=== PATIENT | male | born 1940 | race Caucasian/White ===

== ENCOUNTER → 2016-05-28 | Outpatient (CLI) | payer MEDICARE | END | disposition home or self-care (01) | LOC: GMAJ 10:18 | PROVIDERS: ATTEND Family Medicine | DX: Z12.5 Encounter for screening for malignant neoplasm of prostate (principal) ==

== ENCOUNTER → 2017-06-03 | Outpatient (CLI) | payer MEDICARE | LOC: GMAJ 11:22 | PROVIDERS: ATTEND Family Medicine | DX: Z12.5 Encounter for screening for malignant neoplasm of prostate (principal) ==

== ENCOUNTER 2019-06-20 12:04 | Inpatient (IN) | payer MEDICARE ==
--- NOTE | 2019-06-20 13:14 | RAD ---
EXAM DESCRIPTION: Abdomen Series CLINICAL HISTORY: 78 years Male, suprapubic and rlq pain 24 hr COMPARISON: None. FINDINGS: The cardiomediastinal silhouette is unremarkable. The lungs are hyperinflated, no airspace consolidation or pleural effusion. No free subdiaphragmatic gas or intra-abdominal air-fluid level. Large amount of colonic stool and gas, no dilated small bowel loops. Degenerative changes in the lumbar spine. No suspicious intra-abdominal calcification or mass. IMPRESSION: Large amount of colonic stool and gas without obstruction, pneumoperitoneum or other acute intra-abdominal abnormality. Pulmonary hyperinflation which may be related to deep inspiration or COPD. Electronically signed by: Andrey Luque MD 06/20/2019 1:12 PM CDT
--- NOTE | 2019-06-20 13:58 | CT ---
Study: CT abdomen and pelvis. Indication: rlq pain 24 hours Technique: CT of the abdomen and pelvis obtained without intravenous contrast. This exam was performed according to our departmental dose-optimization program, which includes automated exposure control, adjustment of the mA and/or kV according to patient size and/or use of iterative reconstruction technique. Comparison: None. Findings: Mild basilar atelectasis. Cardiomegaly. Liver, gallbladder, pancreas, spleen, adrenal glands, left kidney, bladder, prostate gland demonstrate normal unenhanced CT appearance. Small right renal cyst. No hydronephrosis or nephrolithiasis. Mild constipation. Appendix not visualized. Stomach and small bowel unremarkable. No free fluid. No free air. No pathologically enlarged lymphadenopathy. Atherosclerosis aorta. Degenerative changes of the spine noted. Impression: No hydronephrosis or nephrolithiasis. Mild constipation. Additional findings as above. Electronically signed by: Papi Aranda MD 06/20/2019 1:56 PM CDT
[2019-06-20] MEDS ORDERED: SOD CHL 3% *HYPERTONIC* 500ML 200 ML IVS ONE (14:10)
[2019-06-20] MEDS ORDERED: MAGNESIUM HYDROXIDE 30 ML UD PO ONE ×2 (14:13→18:00)
--- NOTE | 2019-06-20 14:20 | ED.PDOC ---
History of Present Illness - General Chief Complaint: Abdominal Pain Stated Complaint: abdominal pain Time Seen by Provider: 06/20/19 12:19 Source: patient Exam Limitations: no limitations - History of Present Illness Initial Comments: The patient is a 78-year-old male presenting to the emergency room primarily due to right lower quadrant pain. He showed up at his primary care doctor's office and was told to come to the emergency room for work-up. No fevers. Mild anorexia over the last 18 hours. Abdominal pain is vague. No real point tenderness. No rebound or peritoneal signs. No guarding. No obvious palpable hernia. No evidence of any trauma. No syncope or near syncope. He denies smoking or any excessive alcohol intake. He reports a normal diet. No recent obvious large weight loss. No history of any hyponatremia. He has however over the past weeks to months had increasing headaches along with dizziness and mild blurry vision along with tingling in his hands and some mild overall weakness. Timing/Duration: unsure Severity: moderate Improving Factors: nothing Worsening Factors: movement Associated Symptoms: headaches, loss of appetite, malaise, weakness Allergies/Adverse Reactions: Allergies Codeine Allergy (Unverified 05/11/12 13:40) Meperidine [From Demerol HCl] Allergy (Unverified 05/11/12 13:40) Morphine Allergy (Unverified 05/11/12 13:40) Home Medications: Ambulatory Orders Levocetirizine Dihydrochloride [Levocetirizine Dihydrochl] 5 mg PO DAILY 06/20/19 Meloxicam 7.5 mg PO BID 06/20/19 Tamsulosin [Flomax] 0.4 mg PO QD 06/20/19 Review of Systems - Review of Systems Constitutional: States: malaise, weakness EENTM: States: blurred vision Respiratory: States: no symptoms reported Cardiology: States: no symptoms reported Gastrointestinal/Abdominal: States: abdominal pain, constipation, nausea Genitourinary: States: no symptoms reported Musculoskeletal: States: no symptoms reported Skin: States: no symptoms reported Neurological: States: headache, tingling Endocrine: States: no symptoms reported All other Systems: No Change from Baseline Past Medical History (General) - Patient Medical History Hx Seizures: No Hx Stroke: No Hx Asthma: No Hx Cardiac Disorders: No Hx Pacemaker: No Hx Hypertension: No Hx Thyroid Disease: No Hx Diabetes: No Hx Gastroesophageal Reflux: No Surgical History: other - Social History Hx Tobacco Use: No Hx Chewing Tobacco Use: Yes Family Medical History - Family History Mother Family History: Unknown Physical Exam - Physical Exam General Appearance: Alert, Comfortable, No apparent distress Eye Exam: bilateral normal Ears, Nose, Throat: hearing grossly normal, other - Poor dentition Neck: full range of motion, supple Respiratory: lungs clear, normal breath sounds, no respiratory distress, no accessory muscle use Cardiovascular/Chest: normal peripheral pulses, regular rate, rhythm, no edema Peripheral Pulses: radial,right: 2+, radial,left: 2+, dorsalis pedis,right: 2+, dorsalis pedis,left: 2+ Gastrointestinal/Abdominal: soft, other - Mild right lower to suprapubic discomfort to palpation. No rebound or peritoneal signs. No obvious palpable mass. 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 After work-up including lab work and CT scan the most likely source for this is constipation and possibly a mild muscular strain. The patient will need to get cleaned out. Symptoms will need to be reevaluated after that. No obvious evidence of any appendicitis or other acute surgical pathology. The patient is however significantly hyponatremic and does seem to be symptomatic from that. Source of this is not entirely certain. He is going to be given 3% saline at 50 cc/h for 4 hours only. He will need to have a recheck after that. Additionally he may need to be checked again after getting cleaned out. The patient does understand that he may yet have to go on a fluid restriction longer-term as well as take a sodium supplement possibly. No focal neurological changes otherwise. Vital signs have remained stable. Admit for correction of symptomatic hyponatremia and constipation. - Results/Orders Results/Orders: Laboratory Last Values WBC 5.2 K/mm3 (4.8-10.8) 06/20/19 13:13 RBC 4.11 M/mm3 (4.70-6.10) L 06/20/19 13:13 Hgb 13.1 gm/dL (14.0-18.0) L 06/20/19 13:13 Hct 37.8 % (42.0-52.0) L 06/20/19 13:13 MCV 92.0 fl (80.0-94.0) 06/20/19 13:13 MCH 31.9 pg (27.0-31.0) H 06/20/19 13:13 MCHC 34.6 g/dL (33.0-37.0) 06/20/19 13:13 RDW 13.8 % (11.5-14.5) 06/20/19 13:13 Plt Count 198 K/mm3 (130-400) 06/20/19 13:13 MPV 6.8 fl (7.40-10.4) L 06/20/19 13:13 Absolute Neuts (auto) 3.30 K/uL (1.8-6.8) 06/20/19 13:13 Absolute Lymphs (auto) 1.40 K/uL (1.0-3.4) 06/20/19 13:13 Absolute Monos (auto) 0.40 K/uL (0.2-0.8) 06/20/19 13:13 Absolute Eos (auto) 0.00 K/uL (0.0-0.4) 06/20/19 13:13 Absolute Basos (auto) 0.00 K/uL (0.0-0.1) 06/20/19 13:13 Neutrophils % 63.8 % (42.0-78.0) 06/20/19 13:13 Lymphocytes % 26.8 % (20.0-50.0) 06/20/19 13:13 Monocytes % 8.2 % (2.0-9.0) 06/20/19 13:13 Eosinophils % 0.5 % (1.0-5.0) L 06/20/19 13:13 Basophils % 0.7 % (0.0-2.0) 06/20/19 13:13 Sodium 124 mmol/L (135-145) L 06/20/19 13:13 Potassium 4.0 mmol/L (3.6-5.0) 06/20/19 13:13 Chloride 91 mmol/L (101-111) L 06/20/19 13:13 Carbon Dioxide 26 mmol/L (21-31) 06/20/19 13:13 Anion Gap 11.0 (12-18) L 06/20/19 13:13 BUN 13 mg/dL (7-18) 06/20/19 13:13 Creatinine 0.70 mg/dL (0.6-1.3) 06/20/19 13:13 BUN/Creatinine Ratio 18.6 (10-20) 06/20/19 13:13 Random Glucose 98 mg/dL (70-105) 06/20/19 13:13 Serum Osmolality 249.7 mOsm/L (275-295) L* 06/20/19 13:13 Lactic Acid 1.0 mmol/L (0.5-2.2) 06/20/19 13:13 Calcium 9.3 mg/dL (8.4-10.2) 06/20/19 13:13 Total Bilirubin 1.2 mg/dL (0.2-1.0) H 06/20/19 13:13 AST 20 IU/L (10-42) 06/20/19 13:13 ALT 15 IU/L (10-60) 06/20/19 13:13 Alkaline Phosphatase 44 IU/L (42-121) 06/20/19 13:13 Serum Total Protein 7.2 gm/dL (6.4-8.2) 06/20/19 13:13 Albumin 3.9 g/dl (3.2-5.5) 06/20/19 13:13 Globulin 3.3 gm/dL (2.3-3.5) 06/20/19 13:13 Albumin/Globulin Ratio 1.2 (1.1-1.9) 06/20/19 13:13 Amylase 34 U/L (28-100) 06/20/19 13:13 Lipase 25 U/L (22-51) 06/20/19 13:13 Urine Color Yellow (Yellow) 06/20/19 12:12 Urine Appearance Clear (Clear) 06/20/19 12:12 Urine pH 5.5 (4.5-7.8) 06/20/19 12:12 Ur Specific [place] 1.010 (1.005-1.030) 06/20/19 12:12 Urine Protein Negative mg/dL 06/20/19 12:12 Urine Glucose (UA) Negative mg/dL (Negative) 06/20/19 12:12 Urine Ketones Negative mg/dL (NEGATIVE) 06/20/19 12:12 Urine Blood Trace-intact (Negative) H 06/20/19 12:12 Urine Nitrite Negative 06/20/19 12:12 Urine Bilirubin Negative (NEGATIVE) 06/20/19 12:12 Urine Urobilinogen 0.2 mg/dL (0.2-1.0) 06/20/19 12:12 Ur Leukocyte Esterase Negative (Negative) 06/20/19 12:12 Urine RBC 0 /hpf 06/20/19 12:12 Urine WBC 0-1 /hpf 06/20/19 12:12 Ur Epithelial Cells 0 /hpf 06/20/19 12:12 Urine Bacteria 0 06/20/19 12:12 Chest x-ray does show some hyperinflation. Abdominal x-ray shows large amount of stool. No obstruction. No perforation. CT scan of the abdomen and pelvis shows the constipation. No obvious renal pathology. No other obvious acute pathology. See report for details. Departure - Departure Clinical Impression: Hyponatremia with decreased serum osmolality Constipation Qualifiers: Constipation type: unspecified constipation type Qualified Code(s): K59.00 - Constipation, unspecified Disposition: Admit Patient Condition: Fair Departure Forms: ED Discharge - Pt. Copy, Patient Portal Self Enrollment Referrals: Yanick Johnson MD [Primary Care Provider] - 1-2 Weeks Home Medications: Ambulatory Orders Levocetirizine Dihydrochloride [Levocetirizine Dihydrochl] 5 mg PO DAILY 06/20/19 Meloxicam 7.5 mg PO BID 06/20/19 Tamsulosin [Flomax] 0.4 mg PO QD 06/20/19 Decision To Admit - Decistion To Admit Decision to Admit Reason: Medical Nature Decision to Admit Date: 06/20/19 Decision to Admit Time: 14:26
--- NOTE | 2019-06-20 14:50 | HP ---
SUPERVISING PHYSICIAN: King Hathaway MD CHIEF COMPLAINT: Right upper and right lower quadrant abdominal pain. HISTORY OF PRESENT ILLNESS: This is a 78-year-old male patient that presented to the Emergency Room today. He had actually been to see his primary care physician due to right sided abdominal pain and actually sent him straight to the Emergency Room. He has had the right sided abdominal pain for one to two days. He sees Dr. Johnson as his primary care physician. He has no significant history, but he did say he has not felt like eating over the last couple of days. He has no history of any problems with his abdomen. He denies any pain medication use. In the Emergency Room, his initial vital signs were temperature 96, heart rate 50, blood pressure 149/80, respiratory rate 18, O2 saturation 100% on room air. Lab studies were done. His CBC was basically unremarkable. Chemistries showed a sodium of 124, potassium 4, chloride 96, serum osmolality 249.7, total bilirubin 1.2. Urinalysis was unremarkable. Abdominal x-ray showed no hydronephrosis or nephrolithiasis. Mild constipation. A CT of the abdomen was done and showed no hydronephrosis or nephrolithiasis, just mild constipation. He was given some fluids in the ER as well as some Milk of Magnesia. He was also given some hypertonic saline solution and I was called for hospital admission. PAST MEDICAL HISTORY: 1. Chronic obstructive pulmonary disease. 2. Osteoarthritis. 3. Benign prostatic hypertrophy. 4. injury to a work accident. PAST SURGICAL HISTORY: 1. Breast biopsy that was benign. 2. Left elbow surgery. 3. Right shoulder surgery. 4. Vasectomy. 5. Unknown scrotal surgery. OUTPATIENT MEDICATIONS: 1. Meloxicam. 2. Tamsulosin. 3. Albuterol. 4. Methocarbamol. ALLERGIES: 1. Codeine. 2. Macrolides. 3. Morphine. 4. Fluoroquinolones. 5. Demerol. 6. Penicillin. 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 He is . He has two children. He lives in [place]. He denied smoking tobacco products, although he did smoke tobacco in the past. He does dip tobacco. He drinks about three to four beers weekly. He denies any illicit drug use. REVIEW OF SYSTEMS: GENERAL: Negative for fever, fatigue or weight changes. HEENT: Negative for sinus symptoms, ear pain, vision changes or sore throat. RESPIRATORY: Negative for wheezing, coughing or shortness of breath. CARDIAC: Negative for chest pain, palpitations or tachycardia. GASTROINTESTINAL: As per history of present illness. GENITOURINARY: Negative for hematuria, dysuria or polyuria. MUSCULOSKELETAL: Negative for arthralgias, myalgias. SKIN: Negative for lesions or rashes. NEUROLOGIC: Negative for headache, weakness or seizures. PHYSICAL EXAMINATION: VITAL SIGNS: Temperature 96.3, heart rate 49, blood pressure 152/94, respiratory rate 16, O2 saturation 100% on room air. GENERAL: This is a 78-year-old male patient who is lying in his hospital bed. He is in no acute distress. HEENT: Normocephalic, atraumatic. Pupils are equal and reactive. Oropharynx is clear. NECK: Supple without mass. CARDIOVASCULAR: Regular rate and rhythm. GASTROINTESTINAL: Abdomen is soft, nondistended. He has some tenderness to the right upper and right lower quadrant as well as epigastric area. There is no rebound tenderness or guarding. Bowel sounds are positive. EXTREMITIES: No cyanosis, clubbing or edema. RECTAL: Deferred. BACK: Deferred. NEUROLOGIC: Awake, alert and oriented times three. LABORATORY: Followup sodium is 130, potassium 3.8, chloride 95, serum osmolality 266.9, lipase 25. All other labs and films have been reviewed via the EMR. IMPRESSION: 1. Hyponatremia of unknown etiology. 2. Constipation. 3. Chronic obstructive pulmonary disease without signs or symptoms of acute exacerbation. 4. Benign prostatic hypertrophy. 5. Questionable hypertension. His blood pressure was slightly elevated on admission. PLAN: The patient has been admitted to the hospital. His 3% saline has been discontinued and I will put him on a maintenance IV of normal saline. I will recheck his labs in the morning. He received a dose of Milk of Magnesia in the Emergency Room and has received some Milk of Magnesia since he has been admitted to the Floor. I will also put him on daily MiraLAX. I discussed MiraLAX dosing once he is discharged from the hospital. He will have breathing treatments, both p.r.n. and scheduled although he does not have an exacerbation as far as I can tell. We will resume his home medications as soon as they are verified. We will also monitor his blood pressure. We may need to add a blood pressure medicine. He will have Lovenox for DVT prophylaxis. Hopefully he can be discharged in the next two to three days. He may need followup with nephrology as we do not know the etiology of his hyponatremia. We will continue to monitor the patient closely and follow as needed. #[id number] MTDD
[2019-06-20] MEDS ORDERED: SODIUM CHLORIDE 0.9% (FLUSH) 10 ML SYG IV PRN (16:14)
[2019-06-20] MEDS ORDERED: ACETAMINOPHEN 325 MG TAB PO PRN (16:14)
[2019-06-20] MEDS ORDERED: ONDANSETRON INJ 4 MG/2 ML VIAL IV PRN (16:14)
[2019-06-20] MEDS ORDERED: IV SET AND CAP CHANGE INJ INJ SCH (16:30)
[2019-06-20] MEDS: TAMSULOSIN 0.4 MG CAP PO SCH (18:15)
[2019-06-20] MEDS: SODIUM CHLORIDE 0.9% 1000ML 1,000 ML IVS PRN (20:12)
[2019-06-20] MEDS ORDERED: ENOXAPARIN SODIUM 40 MG/0.4 ML SYG SUBCU SCH (21:00)
[2019-06-20] MEDS: MELOXICAM 7.5 MG TAB PO SCH (21:43)
[2019-06-20] MEDS: SODIUM CHLORIDE 0.9% (FLUSH) 10 ML SYG IV SCH (21:44)
[2019-06-21] MEDS: SODIUM CHLORIDE 0.9% 1000ML 1,000 ML IVS PRN (04:20)
[2019-06-21 05:12] VITALS: O2SAT 97
[2019-06-21] MEDS ORDERED: POLYETHYLENE GLYCOL 3350 17 GM PCKT PO SCH (09:00)
[2019-06-21] MEDS ORDERED: CETIRIZINE HCL 10 MG TAB PO SCH (09:00)
[2019-06-21] MEDS: TAMSULOSIN 0.4 MG CAP PO SCH (09:14)
[2019-06-21] MEDS: MELOXICAM 7.5 MG TAB PO SCH (09:15)
[2019-06-21] MEDS: SODIUM CHLORIDE 0.9% (FLUSH) 10 ML SYG IV SCH (09:16)
[2019-06-21 10:44] VITALS: BP 146/86; TEMP 98.5
--- NOTE | 2019-07-01 09:54 | DS ---
SUPERVISING PHYSICIAN: King Hathaway MD ADMISSION DIAGNOSIS: 1. Hyponatremia of unknown etiology. 2. Constipation. 3. Chronic obstructive pulmonary disease without signs or symptoms of acute exacerbation. 4. Benign prostatic hypertrophy. 5. Questionable hypertension. His blood pressure was slightly elevated on admission. DISCHARGE DIAGNOSIS: 1. Hyponatremia, resolved and at baseline. 2. Constipation. 3. Chronic obstructive pulmonary disease without signs or symptoms of acute exacerbation. 4. Benign prostatic hypertrophy. 5. Questionable hypertension. His blood pressure was slightly elevated on admission. REASON FOR HOSPITALIZATION: This is a 78-year-old male patient that presented to the Emergency Room today. He had actually been to see his primary care physician due to right sided abdominal pain and actually sent him straight to the Emergency Room. He has had the right sided abdominal pain for one to two days. He sees Dr. Johnson as his primary care physician. He has no significant history, but he did say he has not felt like eating over the last couple of days. He has no history of any problems with his abdomen. He denies any pain medication use. In the Emergency Room, his initial vital signs were temperature 96, heart rate 50, blood pressure 149/80, respiratory rate 18, O2 saturation 100% on room air. Lab studies were done. His CBC was basically unremarkable. Chemistries showed a sodium of 124, potassium 4, chloride 96, serum osmolality 249.7, total bilirubin 1.2. Urinalysis was unremarkable. Abdominal x-ray showed no hydronephrosis or nephrolithiasis. Mild constipation. A CT of the abdomen was done and showed no hydronephrosis or nephrolithiasis, just mild constipation. He was given some fluids in the ER as well as some Milk of Magnesia. He was also given some hypertonic saline solution and I was called for hospital admission. LABORATORY: Initial sodium was 124, discharge was 135. Other electrolytes were within normal limits. Creatinine 0.65. Liver functions were all within normal limits. Lipase normal at 25. Urinalysis showed trace blood. MICROBIOLOGY: No specimens submitted. RADIOLOGY: Abdominal x-ray showed large amount of colonic stool and gas without obstruction. Please see that report for details. He then had an abdominopelvic CT and per radiologic interpretation showed hydronephrosis or nephrolithiasis. There was note of mild constipation. Please see that report for details. Echocardiogram showed normal systolic left ventricular function with ejection fraction 73%. EKG shows sinus bradycardia with no ectopy or acute changes, no ST-T wave elevation to indicate any acute ischemia. HOSPITAL COURSE: Mr. Adams was admitted as noted in history of present illness for hyponatremia from primary care office with additional right sided abdominal pain for evaluation. He was worked up in the Emergency Room and found to have a low sodium. He did not have any significant abdominal pain on admission and was treated with hypertonic saline initially and then with normal saline with good results and being clinically stable on date of discharge. He actually had a bowel movement with no abdominal pains and was felt clinically stable enough to continue with outpatient management. DISCHARGE ASSESSMENT: VITAL SIGNS: Stable with temperature 98.5, pulse 77, blood pressure 146/86, respirations 20, saturation 97% on room air. GENERAL: The patient was alert and oriented, in no acute distress. CHEST: Clear to auscultation. HEART: Regular rate and rhythm. ABDOMEN: Soft, nontender, positive bowel sounds. EXTREMITIES: No edema. NEUROLOGIC: Alert and oriented times 3. PLAN: Mr. Adams was discharged on 06/21/19 with instructions to followup with his primary care provider on 06/27/19, Dr. Johnson. He was to resume his regular diet as tolerated, but restrict fluids to less than 1800 mL per 24 hours and return to the Emergency Department as needed. He was also instructed not to continue any beer drinking and to take a daily laxative or MiraLAX to help with constipation. Diet on discharge was regular diet with fluid restrictions and decreased sodium. Activity to increase as tolerated. Medication prescribed on discharge was MiraLAX 17 grams daily, #30, no refills. All other medications prior to hospitalization discontinue as is. DISPOSITION: The patient was discharged home. CONDITION ON DISCHARGE: Stable and improved. #[id number] [facility]
== END 2019-06-21 12:40 | disposition home or self-care (01) | DRG 641 ==
LOC: ER 12:04 → OBSVTOIN 14:44 → MS 14:44
PROVIDERS: ADMIT Nurse Practitioner Acute Care; ATTEND Nurse Practitioner Family
DX: E87.1 Hypo-osmolality and hyponatremia (principal); K59.00 Constipation, unspecified; J44.9 Chronic obstructive pulmonary disease, unspecified; M19.90 Unspecified osteoarthritis, unspecified site; N40.0 Benign prostatic hyperplasia without lower urinary tract symptoms; Z79.1 Long term (current) use of non-steroidal anti-inflammatories (NSAID); Z88.5 Allergy status to narcotic agent; Z88.3 Allergy status to other anti-infective agents; Z88.0 Allergy status to penicillin; Z88.1 Allergy status to other antibiotic agents; Z87.891 Personal history of nicotine dependence; Z79.899 Other long term (current) drug therapy; F17.220 Nicotine dependence, chewing tobacco, uncomplicated

== ENCOUNTER 2019-09-22 18:59 | Observation (INO) | payer MEDICARE ==
[2019-09-22] MEDS ORDERED: ONDANSETRON ODT 8 MG TAB SL ONE (19:10)
[2019-09-22] MEDS ORDERED: ALUM & MAG HYDROX-SIMETHICONE 30 ML, LIDOCAINE VISCOUS 2% 15 ML PO ONE ×2 (19:10)
[2019-09-22] MEDS ORDERED: FAMOTIDINE 20 MG TAB PO ONE (19:10)
[2019-09-22] MEDS ORDERED: SODIUM CHLORIDE 0.9% 1000ML 1,000 ML IVS ONE (19:39)
[2019-09-22] MEDS ORDERED: MAGNESIUM HYDROXIDE 30 ML UD PO ONE (21:01)
[2019-09-22] MEDS ORDERED: SOD CHL 3% *HYPERTONIC* 500ML 160 ML IVS ONE (21:03)
--- NOTE | 2019-09-22 21:27 | ED.PDOC ---
History of Present Illness - General Chief Complaint: Abdominal Pain Time Seen by Provider: 09/22/19 19:04 Source: patient Exam Limitations: no limitations - History of Present Illness Initial Comments: The patient is a 79-year-old male presented emergency room secondary to abdominal pain and cramping for the last 5 weeks that is been getting progressively worse. He threw up one time today. No blood in it. No history of significant liver or gallbladder disease. No history of pancreatitis. He does have a history of mild recurrent hyponatremia according to him. Abdominal discomfort is cramping and somewhat diffuse. On palpation it seems to localize more to the epigastric area. No obvious palpable mass. No fever in his history. No significant cough or runny nose. No diarrhea. No known exposure to coronavirus. Timing/Duration: other Severity: moderate Improving Factors: nothing - 5 weeks Worsening Factors: eating Associated Symptoms: loss of appetite, malaise, nausea/vomiting Allergies/Adverse Reactions: Allergies Codeine Allergy (Verified 06/20/19 18:28) Meperidine [From Demerol HCl] Allergy (Verified 06/20/19 18:28) Morphine Allergy (Verified 06/20/19 18:28) Penicillins Allergy (Verified 06/20/19 18:28) Home Medications: Ambulatory Orders Levocetirizine Dihydrochloride [Levocetirizine Dihydrochl] 5 mg PO DAILY 06/20/19 Meloxicam 7.5 mg PO BID 06/20/19 Tamsulosin [Flomax] 0.4 mg PO QD 06/20/19 Polyethylene Glycol 3350 [Tgt Powderlax] 17 gm PO DAILY #30 kayla 06/21/19 Review of Systems - Review of Systems Constitutional: States: malaise EENTM: States: no symptoms reported Respiratory: States: no symptoms reported Cardiology: States: no symptoms reported Gastrointestinal/Abdominal: States: abdominal pain, nausea, vomiting Genitourinary: States: no symptoms reported Musculoskeletal: States: no symptoms reported Skin: States: no symptoms reported Neurological: States: no symptoms reported Endocrine: States: no symptoms reported All other Systems: No Change from Baseline Past Medical History (General) - Patient Medical History Hx Seizures: No Hx Stroke: No Hx Dementia: No Hx Asthma: No Hx of COPD: No Hx Cardiac Disorders: No Hx Congestive Heart Failure: No Hx Pacemaker: No Hx Hypertension: No Hx Thyroid Disease: No Hx Diabetes: No Hx Gastroesophageal Reflux: No Hx Renal Disease: No Hx Cancer: No Hx of HIV: No Hx Hepatitis C: No Hx MRSA: No Surgical History: no surgical history - Vaccination History Hx Tetanus, Diphtheria Vaccination: Yes Hx Influenza Vaccination: No Hx Pneumococcal Vaccination: Yes - Social History Hx Tobacco Use: No Hx Chewing Tobacco Use: No Hx Alcohol Use: Yes Hx Substance Use: No Hx Substance Use Treatment: No Hx Depression: No Feels Threatened In Home Enviroment: No Feels Threatened In a Relationship: No Hx Physical Abuse: No Hx Emotional Abuse: No Hx Suspected Abuse: No - Female History Patient is a Female of Child Bearing Age (10 -59 yrs old): No Family Medical History - Family History Mother Family History: Unknown Physical Exam - Physical Exam General Appearance: Alert, No apparent distress Eye Exam: bilateral normal Ears, Nose, Throat: hearing grossly normal, normal ENT inspection Neck: non-tender, supple Respiratory: lungs clear, normal breath sounds, no respiratory distress, no accessory muscle use Cardiovascular/Chest: normal peripheral pulses, regular rate, rhythm, no edema Peripheral Pulses: radial,right: 2+, radial,left: 2+ Gastrointestinal/Abdominal: soft, other - See history of present illness Rectal Exam: deferred Back Exam: no CVA tenderness, no vertebral tenderness Extremity: normal range of motion, non-tender, normal inspection, no pedal edema, normal capillary refill Neurologic: felter tennis balls II-XII nml as tested, alert, normal mood/affect, oriented x 3 Skin Exam: normal color Comments: Vital Signs - 24 hr 09/22/19 09/22/19 09/22/19 19:15 19:30 20:00 Temperature 97.7 F Pulse Rate [ 82 82 64 Pulse Ox] Respiratory 18 16 Rate Blood Pressure 174/99 141/91 [Left Arm] O2 Sat by Pulse 95 98 Oximetry 09/22/19 21:00 Temperature Pulse Rate [ 66 Pulse Ox] Respiratory 14 Rate Blood Pressure 154/100 [Left Arm] O2 Sat by Pulse 96 Oximetry Progress - Progress Progress: 09/22/19 21:30 The patient is a 79-year-old male presented emergency room secondary to 5 weeks of progressive abdominal pain culminating in nausea and vomiting toda y. The patient is feeling somewhat better after GI medications and IV fluids were given. The patient does appear to have a significant gastritis along with some constipation. He was given a dose of magnesia for this. The patient additionally does have what appears to be symptomatic hyponatremia. It is 128 today which is lower than it has been in the past according to the laboratory work done here. The patient received a liter of IV fluids of normal saline and is receiving a total of 160 cc of 3% saline over 4 hours. He will need to have a sodium rechecked in the morning. CT scan of abdomen pelvis was done without contrast, however due to transmission difficulties we are unable to obtain a radiology read on this. I do not see evidence of perforation or obstruction on the scan. We will hopefully have an official read in the morning. For now the patient will be admitted for continued correction of above issues. armando rutledge [id number] - Results/Orders Results/Orders: 09/22/19 19:09 Telemetry .CONTINUOUS 09/22/19 19:10 Abdomen Series [RAD] Stat abdominal series shows a fairly large amount of stool. No obvious obstruction. Official read is pending. 09/22/19 20:08 Abdoment/Pelvis w/o Contrast [CT] Stat official read is pending as the [employer] computer transfer lines are down. As per my read, the patient has constipation. He has a fairly large what is likely renal cyst. 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 I do not see any evidence of obvious obstruction, perforation or ileus. This is a noncontrast scan. We are hoping to have an official read by morning. Laboratory Results - last 24 hr 09/22/19 09/22/19 09/22/19 19:14 19:20 19:20 WBC 6.2 RBC 4.21 L Hgb 13.6 L Hct 39.7 L MCV 94.3 H MCH 32.3 H MCHC 34.2 RDW 14.3 Plt Count 203 MPV 6.9 L Absolute Neuts (auto) 3.50 Absolute Lymphs (auto) 1.80 Absolute Monos (auto) 0.80 Absolute Eos (auto) 0.10 Absolute Basos (auto) 0.00 Neutrophils % 56.8 Lymphocytes % 28.9 Monocytes % 12.8 H Eosinophils % 1.0 Basophils % 0.5 Sodium 128 L Potassium 4.1 Chloride 93 L Carbon Dioxide 26 Anion Gap 13.1 BUN 16 Creatinine 0.79 BUN/Creatinine Ratio 20.3 H Random Glucose 107 H Serum Osmolality 258.7 L Lactic Acid Calcium 8.9 Magnesium Total Bilirubin 0.6 AST 17 ALT 15 Alkaline Phosphatase 41 L Creatine Kinase 59 CK-MB (CK-2) 1.3 CK-MB (CK-2) % Not Reportable Troponin I 0.04 B-Natriuretic Peptide 26.4 Serum Total Protein 7.1 Albumin 4.2 Globulin 2.9 Albumin/Globulin Ratio 1.4 Amylase 39 Lipase Urine Color Yellow Urine Appearance Clear Urine pH 6.5 Ur Specific [place] 1.020 Urine Protein Negative Urine Glucose (UA) Negative Urine Ketones Negative Urine Blood Trace-intact H Urine Nitrite Negative Urine Bilirubin Negative Urine Urobilinogen 0.2 Ur Leukocyte Esterase Negative Urine RBC 0-1 Urine WBC 0 Ur Epithelial Cells 0-1 Urine Bacteria 0 09/22/19 09/22/19 19:20 19:20 WBC RBC Hgb Hct MCV MCH MCHC RDW Plt Count MPV Absolute Neuts (auto) Absolute Lymphs (auto) Absolute Monos (auto) Absolute Eos (auto) Absolute Basos (auto) Neutrophils % Lymphocytes % Monocytes % Eosinophils % Basophils % Sodium Potassium Chloride Carbon Dioxide Anion Gap BUN Creatinine BUN/Creatinine Ratio Random Glucose Serum Osmolality Lactic Acid 0.9 Calcium Magnesium 1.9 Total Bilirubin AST ALT Alkaline Phosphatase Creatine Kinase CK-MB (CK-2) CK-MB (CK-2) % Troponin I B-Natriuretic Peptide Serum Total Protein Albumin Globulin Albumin/Globulin Ratio Amylase Lipase 26 Urine Color Urine Appearance Urine pH Ur Specific [place] Urine Protein Urine Glucose (UA) Urine Ketones Urine Blood Urine Nitrite Urine Bilirubin Urine Urobilinogen Ur Leukocyte Esterase Urine RBC Urine WBC Ur Epithelial Cells Urine Bacteria Departure - Departure Clinical Impression: Hyponatremia Gastritis Qualifiers: Gastritis type: unspecified gastritis Chronicity: acute Gastritis bleeding: without bleeding Qualified Code(s): K29.00 - Acute gastritis without bleeding Constipation Qualifiers: Constipation type: slow transit constipation Qualified Code(s): K59.01 - Slow transit constipation Disposition: Admit Patient Departure Forms: ED Discharge - Pt. Copy, Patient Portal Self Enrollment Referrals: Yanick Johnson MD [Primary Care Provider] - 1-2 Weeks Home Medications: Ambulatory Orders Levocetirizine Dihydrochloride [Levocetirizine Dihydrochl] 5 mg PO DAILY 06/20/19 Meloxicam 7.5 mg PO BID 06/20/19 Tamsulosin [Flomax] 0.4 mg PO QD 06/20/19 Polyethylene Glycol 3350 [Tgt Powderlax] 17 gm PO DAILY #30 kayla 06/21/19 Decision To Admit - Decistion To Admit Decision to Admit Reason: Medical Nature Decision to Admit Date: 09/22/19 Decision to Admit Time: 21:32
[2019-09-22] MEDS ORDERED: DEX 5% W/NACL 0.9% 1000ML 1,000 ML IVS PRN (23:14)
[2019-09-22] MEDS ORDERED: HYOSCYAMINE SULFATE 0.5 MG/ML VIAL IV ONE (23:15)
[2019-09-22] MEDS ORDERED: ONDANSETRON INJ 4 MG/2 ML VIAL IV PRN (23:15)
[2019-09-22] MEDS ORDERED: PROMETHAZINE HCL INJ 25 MG in SODIUM CHLORIDE 0.9% 50ML 50 ML IVPB PRN (23:15)
[2019-09-22] MEDS ORDERED: SODIUM CHLORIDE 0.9% (FLUSH) 10 ML SYG IV PRN (23:17)
[2019-09-22] MEDS ORDERED: ACETAMINOPHEN 325 MG TAB PO PRN (23:17)
[2019-09-22] MEDS ORDERED: PANTOPRAZOLE SODIUM IV 40 MG VIAL IV SCH (23:30)
[2019-09-22] MEDS ORDERED: IV SET AND CAP CHANGE INJ INJ SCH (23:30)
[2019-09-22] MEDS ORDERED: HYOSCYAMINE SULFATE 0.125 MG TAB SL PRN (23:48)
--- NOTE | 2019-09-23 05:25 | RAD ---
EXAM: XR Abdomen, 2 Views and XR Chest, 1 View CLINICAL HISTORY: The patient is 79 years old and is Male; abd pain 5 weeks TECHNIQUE: Three views total including of the chest, frontal view of the abdomen/pelvis and upright or decubitus view of the abdomen. COMPARISON: X-ray abdomen series June 20 2019. FINDINGS: Lungs: Hyperinflation. Calcified granuloma right lung. No pulmonary vascular congestion or consolidation. Pleural space: Unremarkable. No pneumothorax. Heart: Unremarkable. No cardiomegaly. Mediastinum: Unremarkable. Intraperitoneal space: No free air. Gastrointestinal tract: Nonobstructive bowel gas pattern. Bones/joints: Mild scoliosis. Degenerative changes in the spine. IMPRESSION: No acute findings in the chest, abdomen or pelvis. Electronically signed by: Isidra Barrow MD 09/23/2019 5:24 AM CDT
--- NOTE | 2019-09-23 05:31 | CT ---
EXAM: CT Abdomen and Pelvis Without Intravenous Contrast CLINICAL HISTORY: The patient is 79 years old and is Male; abd pain 5 weeks, nv today TECHNIQUE: Axial computed tomography images of the abdomen and pelvis without intravenous contrast. Sagittal and coronal reformatted images were created and reviewed. This CT exam was performed using one or more of the following dose reduction techniques: automated exposure control, adjustment of the mA and/or kV according to patient size, and/or use of iterative reconstruction technique. COMPARISON: June 20, 2019 CT abdomen pelvis without contrast. FINDINGS: Lung bases: Unremarkable. No mass. No consolidation. ABDOMEN: Liver: Unremarkable. Gallbladder and bile ducts: Contracted gallbladder without calcified stones. No ductal dilation. Pancreas: Unremarkable. No ductal dilation. Spleen: Unremarkable. No splenomegaly. Adrenals: Unremarkable. No mass. Kidneys and ureters: Bilateral simple renal cysts, largest measuring 4.5 cm. No follow-up is required. No nephrolithiasis, hydronephrosis or ureter stone Stomach and bowel: Moderate wall thickening in the region of the gastric antrum with adjacent fat stranding. Colonic diverticulosis. No bowel dilatation or obstruction. No bowel wall thickening. PELVIS: Appendix: No findings to suggest acute appendicitis. Bladder: Unremarkable. No stones. Reproductive: Mild prostate gland enlargement. ABDOMEN and PELVIS: Intraperitoneal space: Unremarkable. No free air. No significant fluid collection. Bones/joints: Degenerative disc disease in the lumbar spine. Mild scoliosis. No acute fracture. No dislocation. Soft tissues: Unremarkable. Vasculature: Unremarkable. No abdominal aortic aneurysm. Lymph nodes: No pathologically enlarged lymph nodes. IMPRESSION: 1. Moderate wall thickening in the region of the gastric antrum with adjacent fat stranding. Correlate clinically for focal gastritis/peptic ulcer disease. 2. Colonic diverticulosis. 3. Additional non-emergent findings as above. Electronically signed by: Isidra Barrow MD 09/23/2019 5:29 AM CDT
--- NOTE | 2019-09-23 07:00 | RAD ---
EXAM DESCRIPTION: Abdomen Flat Upright CLINICAL HISTORY: 79 years Male, abd pain COMPARISON: Previous x-ray abdomen series September 22, 2019 FINDINGS: Upright view the abdomen shows no abnormal air-fluid levels. No free air under the diaphragm. Degenerative changes in the thoracolumbar spine with mild leftward curvature of the lower thoracic and upper lumbar spine. Lower lungs appear clear. Heart is prominent in size. Supine x-ray view the abdomen shows normal fecal burden in the rectal region. Liver is prominent. Degenerative changes lower lumbar spine. No mass or abnormal calcifications. IMPRESSION: No acute process. Electronically signed by: Dionisio Nelson MD 09/23/2019 6:58 AM CDT
[2019-09-23] MEDS ORDERED: SODIUM CHLORIDE 0.9% (FLUSH) 10 ML SYG IV SCH (09:00)
--- NOTE | 2019-09-23 10:35 | CONS ---
DATE OF CONSULTATION: 09/23/19 HISTORY OF PRESENT ILLNESS: The patient is a 79-year-old male who was admitted through the Emergency Room for abdominal pain for the last several weeks. It had gotten worse. He threw up once yesterday. He denied blood and he denied melanotic stools. He has lost a small amount of weight. He has no history of ulcer disease, no liver disease, no history of pancreatitis. He has recently been treated for hyponatremia. PAST MEDICAL HISTORY: Essentially non-significant. 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 MEDICATIONS: 1. Levocetirizine. 2. Dihydrochloride. 3. Meloxicam. 4. Tamsulosin. 5. MiraLAX. ALLERGIES: CODEINE, MORPHINE, DEMEROL AND PENICILLIN. FAMILY HISTORY: Negative for GI malignancies. SOCIAL HISTORY: He does not use tobacco, but he does use alcohol. He is and lives at home. PHYSICAL EXAMINATION: GENERAL: The patient is awake, alert, cooperative. He is not in any acute distress. He is quite thin and possibly cachectic appearing. VITAL SIGNS: The patient is currently afebrile, normotensive. HEENT: Sclerae nonicteric. Mucous membranes moist. NECK: Without adenopathy. BACK: Without CVA tenderness. CHEST: Equal breath sounds bilaterally. HEART: Regular rate and rhythm. ABDOMEN: Soft. There is tenderness in the right upper quadrant and in the epigastrium without guarding or mass. There is no referred tenderness. RECTAL: Deferred. EXTREMITIES: Without cyanosis, clubbing or edema. LABORATORY: White count 6.2, hemoglobin 13, platelet count 203,000, 56% neutrophils. Electrolytes revealed sodium 128, creatinine 0.79. Liver function tests are all within normal limits. RADIOLOGY: CT scan of the abdomen revealed no masses, no adenopathy, no free air or free fluid. The only pathology was noted to be thickening of the gastric wall consistent with either gastritis, ulcerative disease or possibly also malignancy. ASSESSMENT: Abdominal pain, possible gastritis. RECOMMENDATION: Twice a day Protonix and we will obtain an ultrasound of his gallbladder due to the tenderness in the right upper quadrant and the CT scan revealing a contracted gallbladder. He will need an EGD at some point in the near future and this could be done sooner if he has no resolution of his symptoms. #[id number] [facility]
[2019-09-23] MEDS ORDERED: PANTOPRAZOLE SODIUM IV 40 MG VIAL IV SCH (11:00)
[2019-09-23 11:51] VITALS: BP 115/72; TEMP 98; O2SAT 97
--- NOTE | 2019-09-23 13:38 | US ---
EXAM DESCRIPTION: Abdomen,Complete: Ultrasound. CLINICAL HISTORY: 79 years Maleabd pain COMPARISON: None Available. TECHNIQUE: Transabdominal scanning: grayscale and Doppler modes. FINDINGS: Gallbladder: Normal size with no intraluminal stones or sludge. Wall thickness 2.8 mm. No fluid. Nontender with transducer pressure. Common bile duct: 4.8 mm normal caliber. Liver: Normal echogenicity of the liver with smooth capsule. Long axis right lobe 14.1 cm. Normal caliber of the ducts. Hepatopedal flow portal vein with 9 mm caliber at the bebo hepatis. Pancreas: Normal size and echogenicity. Duct not seen.. Abdominal aorta: Normal Caliber from the proximal segment to the distal bifurcation with minimal atherosclerotic changes. IVC: visualized; normal caliber. Spleen normal echogenicity; long axis measurement is 7.9 cm. Right kidney: 10.6 cm long axis. Cortical thickness 12 mm. Cortical echogenicity decreased compared to the liver. 4.1 x 2.8 cm cyst lower pole. Left kidney: 8.4 cm long axis. Cortical thickness 14 mm. Cortical echogenicity same as right kidney. IMPRESSION: 1. Liver and pancreas are unremarkable. Negative findings in the gallbladder and common bile duct. IVC and abdominal aorta normal caliber. Spleen is unremarkable. 2. 4.1 cm cyst right kidney. Left kidney smaller than right kidney. Thinning of the right renal cortex. Otherwise no significant findings in the bilateral kidneys. Electronically signed by: Johnathan Mancuso MD 09/23/2019 1:37 PM CDT
--- NOTE | 2019-09-28 15:48 | SSS ---
SUPERVISING PHYSICIAN: Yanick Johnson MD DATE OF ADMISSION: 09/22/19 DATE OF DISCHARGE: 09/23/19 DISCHARGE DIAGNOSIS: 1. Abdominal pain, mostly in the epigastric area with nausea and vomiting. 2. Gastritis. 3. Mild hyponatremia. 4. Benign prostatic hypertrophy. 5. Hypertension. 6. Constipation. 7. Seasonal allergies. 8. 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 9. Chronic obstructive pulmonary disease without signs or symptoms of exacerbation. HISTORY OF PRESENT ILLNESS: This is a 79-year-old male patient who presented to the Emergency Room with abdominal pain and cramping that had been going on for about 5 weeks. Over the last several days, it actually worsened. He had some nausea and vomiting with it. He does have a history of a some mild recurrent hyponatremia and was actually in the hospital in June of 2019. His vital signs on admission to the Emergency Room showed temperature 97.7, heart rate 82, blood pressure 176/99, respiratory rate 20, O2 saturation 95% on room air. His lab studies showed WBC 6.2, hemoglobin 13.6, hematocrit 39.7. There was no left shift on differential. Chemistry showed a mild hyponatremia at 128 with potassium 4.1, chloride 93. Serum osmolality 258.7, magnesium 1.9. Liver function tests were within normal limits. Urinalysis was unremarkable. His abdominal x-ray showed no acute findings. Abdomen and pelvis CT showed 1) Moderate wall thickening in the region of the gastric antrum with adjacent fat stranding. Correlate clinically for focal gastric/peptic ulcer disease. 2) Colonic diverticulosis. 3) Contracted gallbladder with some stones. At the time the CT was obtained, our hospital has lost Wi-fi connection and radiology reports were not available at the time of admission. HOSPITAL COURSE: The patient was placed in observation in the hospital. Dr. Balderas, general surgeon was consulted. He was started on Protonix as well as some gentle fluids. He was placed on bowel rest initially and an abdominal sonogram was done the next morning. Dr. Balderas felt like the patient would benefit from being on routine Protonix and Carafate as well as an EGD. The patient's diet was slowly advanced. He had no further complaints of nausea or vomiting. His home medications were restarted. He will be discharged home today in stable condition. LABORATORY: Followup CBC showed WBC 4.5, hemoglobin 13, hematocrit 37.5. Sodium improved to 131, chloride 99. Serum osmolality 262.1. Abdominal sonogram showed 1) Liver and pancreas unremarkable. Negative findings in the gallbladder and common bile duct. IVC and abdominal aorta normal caliber. Spleen unremarkable. 2) 4.1 cm cyst on the right kidney. The left kidney is smaller than the right kidney. Thinning of the right renal cortex. Otherwise, no significant findings. DISCHARGE PLAN: The patient will be discharged home in stable condition. He is to resume his previous diet as tolerated and resume his previous medications. He will followup with Dr. Johnson on 09/29/19 at 1:30 pm. In addition to his routine medications, he is to take Protonix twice daily as well as Carafate a.c. and h.s. It is also recommended that he have an upper GI in the near future. Dr. Balderas said he would be glad to see the patient in consult at any point. He is to return to the hospital or followup with Dr. Johnson for any problems or complications. DISCHARGE MEDICATIONS: 1. Tamsulosin. 2. Levocetirizine. 3. Polyethylene glycol. 4. Pantoprazole. 5. Carafate. #[id number] [facility]
== END 2019-09-23 15:20 | disposition home or self-care (01) ==
LOC: ER 18:59 → MS 21:53
PROVIDERS: ADMIT Nurse Practitioner Acute Care; ATTEND Nurse Practitioner Acute Care
DX: E87.1 Hypo-osmolality and hyponatremia (principal); R10.13 Epigastric pain; R11.2 Nausea with vomiting, unspecified; N40.0 Benign prostatic hyperplasia without lower urinary tract symptoms; I11.0 Hypertensive heart disease with heart failure; I50.32 Chronic diastolic (congestive) heart failure; K59.00 Constipation, unspecified; J30.2 Other seasonal allergic rhinitis; J44.9 Chronic obstructive pulmonary disease, unspecified; K57.30 Diverticulosis of large intestine without perforation or abscess without bleeding; N28.1 Cyst of kidney, acquired; M51.36 Other intervertebral disc degeneration, lumbar region; Z79.1 Long term (current) use of non-steroidal anti-inflammatories (NSAID); Z79.899 Other long term (current) drug therapy; Z88.0 Allergy status to penicillin; Z88.6 Allergy status to analgesic agent
CPT/HCPCS: 96361; 96366 ×2; 96365; 96375; J7030; J7799; 82553; 80053 ×2; 36415 ×4; 82150; 81001; 85025 ×2; 82550; 83690; 83735; 84484; 83880; 83605; 74019 ×2; 74176; 76700; 94760 ×2; 99285; G0378

== ENCOUNTER → 2020-01-27 | Outpatient (CLI) | payer MEDICARE | LOC: GMAJ 10:37 | PROVIDERS: ATTEND Family Medicine | DX: N40.1 Benign prostatic hyperplasia with lower urinary tract symptoms (principal); Z79.899 Other long term (current) drug therapy ==